=== PATIENT | male | born 1990 | race Caucasian/White ===

== ENCOUNTER → 2023-07-19 06:52 | Outpatient (REF) | payer BC, SELFPAY | LOC: RAD 06:52 | PROVIDERS: ATTENDING PHYSICIAN Physician Assistant Medical | DX: K76.0 Fatty (change of) liver, not elsewhere classified (principal); R74.8 Abnormal levels of other serum enzymes; R19.4 Change in bowel habit; K58.9 Irritable bowel syndrome, unspecified | CPT/HCPCS: 76700 ==